=== PATIENT | male | born 1955 | race Caucasian/White ===

== ENCOUNTER → 2017-06-12 | Outpatient (CLI) | payer BC ==
[2015-12-22 21:41] VITALS: BP 128/76
[~2017-06-12] MED LIST: MUCUS DM MAX T1 EACH PO; ZOCOR10 MG PO
[2017-06-12 13:25] LABS: BUN/CREATININE RATIO 10.5 (6.0-26.0); CALCIUM 9.7 mg/dL (8.4-10.2); POTASSIUM 5.6 mmol/L (3.6-5.0); TOTAL BILIRUBIN 1.2 mg/dL (0.2-1.3)
== END ==
LOC: LAB 11:54
PROVIDERS: Family Medicine
DX: Z85.46 Personal history of malignant neoplasm of prostate (principal); E78.2 Mixed hyperlipidemia; N40.0 Benign prostatic hyperplasia without lower urinary tract symptoms

== ENCOUNTER → 2017-06-29 | Outpatient (CLI) | payer BC ==
[2015-12-22 21:41] VITALS: BP 128/76
== END ==
LOC: RAD 08:07
DX: R13.10 Dysphagia, unspecified (principal)

== ENCOUNTER → 2017-12-02 | Outpatient (CLI) | payer BC ==
[2015-12-22 21:41] VITALS: BP 128/76
== END ==
LOC: LAB 10:50
DX: R09.89 Other specified symptoms and signs involving the circulatory and respiratory systems (principal); E55.9 Vitamin D deficiency, unspecified; R22.9 Localized swelling, mass and lump, unspecified; Z80.7 Family history of other malignant neoplasms of lymphoid, hematopoietic and related tissues

== ENCOUNTER 2017-12-06 11:19 | Emergency (ER) | payer BC ==
[~2017-12-06] VITALS: Ht 172.7 cm; Wt 77.3 kg
[2017-12-07 11:10] VITALS: BP 158/90
[2017-12-07] MEDS ORDERED: OMEGA 3-6-9 11200 MG PO (11:12)
[2017-12-07] MEDS ORDERED: ASPIRIN E.C. 8181 MG (11:13)
[2017-12-07] MEDS ORDERED: COD LIVER OIL1 CAP PO (11:13)
== END 2017-12-06 11:41 | disposition left against medical advice (07) ==
LOC: ED 11:19
DX: R03.0 Elevated blood-pressure reading, without diagnosis of hypertension (principal); Z53.21 Procedure and treatment not carried out due to patient leaving prior to being seen by health care provider

== ENCOUNTER → 2017-12-07 | Outpatient (CLI) | payer BC ==
[~2017-12-07] VITALS: Ht 172.7 cm; Wt 80.0 kg
[~2017-12-07] MED LIST changes: +ASPIRIN E.C. 8181 MG; +COD LIVER OIL1 CAP PO; +OMEGA 3-6-9 11200 MG PO
[2017-12-07 11:10] VITALS: BP 158/90
[2017-12-07 12:44] LABS: CALCIUM 9.2 mg/dL (8.4-10.2); POTASSIUM 5.2 mmol/L (3.6-5.0)
[2017-12-07 12:55] LABS: URINE APPEARANCE CLEAR; URINE BILIRUBIN NEGATIVE (NEGATIVE); URINE BLOOD NEGATIVE (NEGATIVE); URINE COLOR YELLOW; URINE GLUCOSE NEGATIVE (NEGATIVE); URINE KETONE NEGATIVE (NEGATIVE); URINE LEUKOCYTE ESTERASE NEGATIVE (NEGATIVE); URINE NITRATE NEGATIVE (NEGATIVE); URINE PROTEIN(semi-quant) NEGATIVE (NEGATIVE); URINE UROBILINOGEN NORMAL (NORMAL); URINE WBC 0-1 /hpf (0-3)
== END ==
LOC: AMSURD 10:51
PROVIDERS: Family Medicine
DX: I10 Essential (primary) hypertension (principal); Z86.39 Personal history of other endocrine, nutritional and metabolic disease

== ENCOUNTER → 2018-08-27 | Outpatient (CLI) | payer BC ==
[2017-12-07 11:10] VITALS: BP 158/90
== END ==
LOC: LAB 10:05
DX: N40.0 Benign prostatic hyperplasia without lower urinary tract symptoms (principal); E78.5 Hyperlipidemia, unspecified; Z85.46 Personal history of malignant neoplasm of prostate

== ENCOUNTER → 2018-09-13 | Outpatient (CLI) | payer BC ==
[2017-12-07 11:10] VITALS: BP 158/90
== END ==
LOC: RAD 08:47
DX: I10 Essential (primary) hypertension (principal); R05 Cough; E78.00 Pure hypercholesterolemia, unspecified; Z82.49 Family history of ischemic heart disease and other diseases of the circulatory system

== ENCOUNTER → 2018-11-05 | Outpatient (CLI) | payer BC ==
[2017-12-07 11:10] VITALS: BP 158/90
== END ==
LOC: CARDLAB 10-15 11:32 → CARDREHAB 07:51 → CARDLAB 09:15
DX: I10 Essential (primary) hypertension (principal); E78.00 Pure hypercholesterolemia, unspecified; Z82.49 Family history of ischemic heart disease and other diseases of the circulatory system
CPT/HCPCS: A9500

== ENCOUNTER 2020-08-05 18:37 | Emergency (ER) | payer BC ==
[2020-08-05 18:51] VITALS: BP 127/72
[2020-08-05] MEDS ORDERED: AMLODIPINE BES2.5 MG PO (18:56)
== END 2020-08-05 20:04 | disposition home or self-care (01) ==
LOC: ED 18:37
DX: H10.9 Unspecified conjunctivitis (principal); I10 Essential (primary) hypertension; Z79.899 Other long term (current) drug therapy

== ENCOUNTER → 2020-09-06 | Outpatient (CLI) | payer BC ==
[~2020-09-06] MED LIST changes: +AMLODIPINE BES2.5 MG PO
[2020-09-06 09:34] LABS: ALBUMIN 3.9 g/dL (3.4-4.8); POTASSIUM 4.4 mmol/L (3.5-5.1)
[2020-09-06 09:35] LABS: CALCIUM 8.5 mg/dL (8.3-10.5)
[2020-09-06 09:36] LABS: TOTAL PROTEIN 6.5 g/dL (6.2-8.1)
[2020-09-06 09:38] LABS: TOTAL BILIRUBIN 1.3 mg/dL (0.2-1.2)
[2020-09-06 09:50] LABS: BASO # 0.08 (0.02-0.10); EOS # 0.22 (0.04-0.40); EOS % 3.9 % (0.0-4.0); HEMATOCRIT 44.8 % (42.0-52.0); HEMOGLOBIN 14.8 g/dL (13.5-18.0); LYMPH# 2.06 (1.50-4.00); MEAN CELL VOLUME 87 fl (78-100); MEAN CORPUSCULAR HEMOGLOBIN 29 pg (27-31); MEAN CORPUSCULAR HGB CONC 33 g/dL (33-37); MEAN PLATELET VOLUME 10.2 fl (7.4-10.4); MONO # 0.67 (0.20-0.80); PLATELET COUNT 225 K/mm3 (130-400); RED BLOOD COUNT 5.17 M/mm3 (4.20-5.60); RED CELL DISTRIBUTION WIDTH 13.4 % (11.5-14.5); WHITE BLOOD COUNT 5.6 K/mm3 (4.8-10.8)
[2020-09-06 09:58] LABS: URINE APPEARANCE CLEAR; URINE BILIRUBIN NEGATIVE (NEGATIVE); URINE BLOOD NEGATIVE (NEGATIVE); URINE COLOR YELLOW; URINE GLUCOSE NEGATIVE (NEGATIVE); URINE KETONE NEGATIVE (NEGATIVE); URINE LEUKOCYTE ESTERASE NEGATIVE (NEGATIVE); URINE NITRATE NEGATIVE (NEGATIVE); URINE PROTEIN(semi-quant) NEGATIVE (NEGATIVE); URINE UROBILINOGEN NORMAL (NORMAL); URINE WBC 0-1 /hpf (0-3)
[2020-09-06 09:59] LABS: URINE MUCUS PRESENT (NOT PRESENT)
== END ==
LOC: LAB 09:11
PROVIDERS: Family Medicine
DX: Z00.01 Encounter for general adult medical examination with abnormal findings (principal); E78.00 Pure hypercholesterolemia, unspecified; R53.83 Other fatigue

== ENCOUNTER → 2020-09-13 | Outpatient (CLI) | payer BC | LOC: RAD 08:00 → VAS 08:00 | DX: R01.1 Cardiac murmur, unspecified (principal) ==

== ENCOUNTER → 2020-10-19 | Outpatient (CLI) | payer BC | LOC: CARDREHAB 08:49 → CARDLAB 14:19 | DX: Z13.6 Encounter for screening for cardiovascular disorders (principal) | CPT/HCPCS: A9500 ==

== ENCOUNTER → 2020-11-02 | Outpatient (CLI) | payer BC | LOC: LAB 15:27 | DX: Z20.822 Contact with and (suspected) exposure to COVID-19 (principal) ==

== ENCOUNTER → 2020-12-27 | Outpatient (CLI) | payer BC | LOC: LAB 15:35 | DX: E78.00 Pure hypercholesterolemia, unspecified (principal); Z86.39 Personal history of other endocrine, nutritional and metabolic disease ==

== ENCOUNTER 2021-03-08 18:32 | Emergency (ER) | payer BC ==
[2021-03-08] MEDS ORDERED: ATORVASTATIN CA20 MG PO (18:43)
[2021-03-08 20:28] VITALS: BP 156/99
== END 2021-03-08 20:28 | disposition home or self-care (01) ==
LOC: ED 18:32
DX: H92.02 Otalgia, left ear (principal); I10 Essential (primary) hypertension; E78.5 Hyperlipidemia, unspecified; E78.00 Pure hypercholesterolemia, unspecified; Z79.899 Other long term (current) drug therapy
CPT/HCPCS: J1885

== ENCOUNTER → 2021-07-08 | Outpatient (CLI) | payer BC ==
[~2021-07-08] MED LIST changes: +ATORVASTATIN CA20 MG PO
== END ==
LOC: AMSURD 10:54
DX: R00.1 Bradycardia, unspecified (principal)

== ENCOUNTER → 2021-07-09 | Outpatient (CLI) | payer BC | LOC: VAS 08:58 → RAD 13:30 → VAS 13:34 | DX: R01.1 Cardiac murmur, unspecified (principal) ==

== ENCOUNTER → 2021-07-11 | Outpatient (CLI) | payer BC ==
[2021-07-11 11:54] LABS: ALBUMIN 4.3 g/dL (3.4-4.8)
[2021-07-11 11:56] LABS: TOTAL PROTEIN 6.9 g/dL (6.2-8.1)
[2021-07-11 11:58] LABS: TOTAL BILIRUBIN 1.5 mg/dL (0.2-1.2)
[2021-07-11 12:02] LABS: DIRECT BILIRUBIN 0.5 mg/dL (0.0-0.5)
== END ==
LOC: LAB 11:29
PROVIDERS: Family Medicine
DX: E78.00 Pure hypercholesterolemia, unspecified (principal); Z86.39 Personal history of other endocrine, nutritional and metabolic disease

== ENCOUNTER 2021-08-22 09:57 | Outpatient (RCR) | payer BC | END 2021-09-05 | disposition home or self-care (01) | LOC: PT | DX: M25.511 Pain in right shoulder (principal) ==

== ENCOUNTER 2021-09-06 10:04 | Outpatient (RCR) | payer BC | END 2021-10-06 | disposition home or self-care (01) | LOC: PT | DX: M25.511 Pain in right shoulder (principal) ==

== ENCOUNTER 2022-05-07 10:54 | Outpatient (RCR) | payer MEDICARE, BC | END 2022-06-06 | disposition home or self-care (01) | LOC: PT | DX: M25.511 Pain in right shoulder (principal) ==

== ENCOUNTER → 2023-03-11 | Outpatient (CLI) | payer MEDICARE, BC | LOC: RAD 09:04 | DX: M25.512 Pain in left shoulder (principal) ==

== ENCOUNTER → 2023-04-15 | Outpatient (CLI) | payer MEDICARE, BC | LOC: LAB 10:55 | PROVIDERS: Family Medicine | DX: I10 Essential (primary) hypertension (principal) ==